=== PATIENT | male | born 1950 | race Caucasian/White ===

== ENCOUNTER → 2018-07-06 | Outpatient (CLI) | payer MEDICARE ==
--- NOTE | 2018-07-06 11:59 | PCVCIMAG ---
APPROVED REPORT Study performed: 07/06/2018 11:12:19 Exam: Stress Echocardiogram Indication: elevated calcium score, hyperlipidemia Patient Location: Echo lab Stress Nurse: Erika Oviedo RN Status: routine Ht: 5 ft 10 in HR: 71 bpm BP: 132/78 mmHg Rhythm: NSR Procedure The patient underwent Stress Test using the Angel Protocol. Blood pressure, heart rate, and EKG were monitored. An Echocardiogram was performed by brewery technician in four stages in quad fashion. At peak stress, four selected images were obtained and placed side by side with resting images for comparison. Stress Test Details Stress Test: Exercise stress testing was performed using a Angel protocol. HR Resting HR: 71 bpmMax Heart Rate (APMHR): 155 bpm Max HR Achieved: 153 bpmTarget HR (85% APMHR): 131 bpm % of APMHR: 98 Recovery HR: 105 bpm HR response to stress: Normal HR response to stress BP Resting BP: 132/78 mmHg Max BP: 166/74 mmHg Recovery BP: 106/70 mmHg BP response to stress: Normal blood pressure response to stress. ECG Resting ECG: Sinus Rhythm Stress ECG: Sinus Rhythm ST Change: Normal Arrhythmia: None Recovery ECG: Sinus Rhythm Recovery ST Change: Normal Recovery Arrhythmia: None Clinical Reason for Termination: Maximal effort, Dyspnea Stress Symptoms: Dyspnea Exercise duration: 9 min 35 sec Highest Stage Achieved: Stage 4: 4.2 mph at 16% grade. Exercise capacity: 12 METs Overall Exercise Capacity for Age: Good Scale: Active Angina Score: None Pre-Stress Echo The resting Echocardiogram showed normal left ventricular contractility with an estimated Ejection Fraction of about >55%. Normal wall motion in all segments on baseline images. Post-Stress Echo The stress Echocardiogram showed normal left ventricular contractility with an estimated Ejection Fraction of about 65%. Normal augmentation of wall motion in all segments on post stress images. Clinical No clinical or ECG evidence for ischemia. Conclusion Clinical Response: Non-ischemic Exercise Capacity: Average Stress ECG Response: Non-ischemic Stress Echo Images: Non-ischemic The left ventricle is normal in size and wall thickness in both the rest and stress images. Other Information Study Quality: Adequate <Conclusion> The left ventricle is normal in size and wall thickness in both the rest and stress images.
== END | disposition home or self-care (01) ==
LOC: PCVCIMAG 13:00
PROVIDERS: ATTEND Family Medicine
DX: R93.1 Abnormal findings on diagnostic imaging of heart and coronary circulation (principal); E03.9 Hypothyroidism, unspecified; E78.2 Mixed hyperlipidemia
CPT/HCPCS: 93325; 93351